=== PATIENT | male | born 1990 | race Caucasian/White ===

== ENCOUNTER 2020-05-04 19:34 | Emergency (ER) | payer OTHER, SELFPAY ==
[~2020-05-04 19:34] MED LIST: Iopamidol-370 76% 500 ML 1 ML ONE
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
[2020-05-04] MEDS ORDERED: Fentanyl 100 MCG/2 ML VIAL ONE (21:27)
[2020-05-04 21:39] LABS: #Basophils 0.1 thou/uL (0.0-0.2); #Eosinphils 0.1 thou/uL (0.0-0.7); #Lymphocytes 2.5 thou/uL (1.20-3.40); #Monocytes 0.7 thou/uL (0.11-0.59); #Neutrophils 8.5 thou/uL (1.40-6.50); %Basophils 0.7 % (0.0-1.0); %Eosinophils 0.9 % (0.0-10.0); %Lymphocytes 21.2 % (21.0-51.0); %Monocytes 5.7 % (0.0-10.0); %Neutrophils 71.6 % (42.0-75.0); Mean Corpuscular HGB CONC 34.8 g/dL (32.0-36.0); Mean Corpuscular Hemoglobin 31.2 pg (27.0-31.0); Mean Corpuscular Volume 89.5 fL (78.0-98.0); Mean Platelet Volume 6.3 fL (7.4-10.4); Platelet Count 251 thou/uL (130-400); Red Blood Cell (RBC) Count 4.81 mill/uL (4.70-6.10); White Blood Cell (WBC) Count 11.8 thou/uL (4.8-10.8)
[2020-05-04 22:01] LABS: ALT (SGPT) 11 U/L (8-55); AST (SGOT) 13 U/L (5-34); Albumin 4.4 g/dL (3.5-5.0); Alkaline Phosphatase 77 U/L (40-110); Anion Gap 12 mmol/L (10-20); BUN (Urea Nitrogen) 7 mg/dL (8.9-20.6); Bilirubin, Total 0.5 mg/dL (0.2-1.2); Calc. Creatinine Clearance 0 mL/min (70-130); Carbon Dioxide 26 mmol/L (22-29); Chloride 106 mmol/L (98-107); Globulin 2.3 g/dL (2.4-3.5); Glucose 120 mg/dL (70-105); Lipase 15 U/L (8-78); Potassium 3.9 mmol/L (3.5-5.1); Protein, Total 6.7 g/dL (6.0-8.3); Sodium 140 mmol/L (136-145)
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
== END 2020-05-04 22:45 | disposition home or self-care (01) ==
LOC: ERS 19:34
DX: S93.401A Sprain of unspecified ligament of right ankle, initial encounter (principal); S43.401A Unspecified sprain of right shoulder joint, initial encounter; F17.210 Nicotine dependence, cigarettes, uncomplicated; V23.4XXA Motorcycle driver injured in collision with car, pick-up truck or van in traffic accident, initial encounter
CPT/HCPCS: 36415; 70450; 71260; 72100; 72125; 72170; 74177; 80053; 83605; 83690; 85025; 93005; 96374; J3010; Q9967

== ENCOUNTER 2020-11-21 13:06 | Emergency (ER) | payer SELFPAY ==
[2020-11-21] MEDS ORDERED: Boostrix 0.5 ML (Tdap) VIAL ONE (16:39)
[2020-11-21] MEDS ORDERED: Acetaminophen 500 MG TAB ONE (16:39)
[2020-11-21] MEDS ORDERED: Ketorolac Tromethamine 30 MG/ML VIAL ONE (16:39)
[2020-11-21] MEDS ORDERED: Lidocaine 1% (PF) 30 ML VIAL ONE (17:21)
== END 2020-11-21 18:02 | disposition home or self-care (01) ==
LOC: ERS 13:06
DX: L03.012 Cellulitis of left finger (principal); F17.210 Nicotine dependence, cigarettes, uncomplicated
CPT/HCPCS: 26010; 87070; 87077; 87186; 87205; 90471; 90715; 96372; J1885; J2001

== ENCOUNTER 2020-11-25 17:12 | Emergency (ER) | payer SELFPAY | END 2020-11-25 20:28 | disposition home or self-care (01) | LOC: ERS 17:12 | DX: S61.012A Laceration without foreign body of left thumb without damage to nail, initial encounter (principal); F17.210 Nicotine dependence, cigarettes, uncomplicated ==